=== PATIENT | female | born 1935 | race Caucasian/White ===

== ENCOUNTER → 2017-02-19 | Day surgery (SDC) | payer MEDICARE, BC, OTHER ==
--- NOTE | 2017-02-12 21:37 | CR ---
DATE: 02/12/2017 Preoperative consultation on Eda Rainey for Dr. Nolasco for cataract extraction scheduled 02/19/2017 at [facility]. Dear Dr. Nolasco, thank you for asking me for preoperative consultation on Ms. Eda Rainey. As you know, Ms. Rainey is a 81-year-old female with a past medical history of poorly controlled hypothyroidism, left rotator cuff repair, presenting for preoperative optimization. The patient reports her thyroid has been very difficult to control. She reports taking the levothyroxine 125 mcg two pills a day. She reports compliance. Her reports that she very easily falls asleep any time during the day despite going to bed between 9:00 and 10:00 p.m. and getting up between 6:00 and 7:00 a.m. He reports that she snores heavily at bedtime as well as when she is sitting up dozing on the couch. She is easily arousable. He finds her asleep on the couch 10-12 times a day. He denies any episodes of apnea or her waking up gasping for air. Patient has a history of allergies. She uses Nasacort as needed. The patient has a history of macular degeneration. She follows with a retinal eyeglass lens cutter and has had multiple injections in the right eye. The patient has a remote history of left knee surgery with no recurrent symptoms. The patient had a recent left rotator cuff tear. She completed physical therapy about 6 months ago and has had a good recovery of her left shoulder function. The patient has a history of psoriasis and uses topical creams as needed. The patient is active, walking approximately one block with no chest pain, palpitations, syncope or presyncope. REVIEW OF SYSTEMS: Otherwise negative. PAST MEDICAL HISTORY: 1. Left rotator cuff injury 2016 with full recovery. 2. Chronic renal insufficiency, stage III. 3. Cholelithiasis, asymptomatic. 4. Benign renal cyst. 5. Left knee arthroscopic surgery remotely. 7. Liver hemangioma. 8. Macular degeneration. 9. Poorly controlled hypothyroidism. 10. Seasonal rhinitis. 11. PACs. 12. Psoriasis. MEDICATIONS: - vitamin D3 2000 international units daily. - ICaps daily - Nasacort as needed - levothyroxine 125 mcg twice a day - topical steroids as needed for psoriasis - baby aspirin SOCIAL HISTORY: No smoking. Rare alcohol. FAMILY HISTORY: Father from heart disease at 66. Mother from stroke at 83. Brother had hypertension. DRUG ALLERGIES: FOSAMAX and PENICILLIN cause rashes. PHYSICAL EXAMINATION: Overweight female, no acute distress. Vital Signs: weight 197 with a body mass index (BMI) of 38, blood pressure 154/90 with a recheck of 144/90, heart rate 64, oxygen saturation 98% after exertion. HEENT Exam: Head is normocephalic. The patient has bilateral ceruminosis as well as eczematous changes of the external ear. Neck is supple. Pupils equal, reactive to light. Extraocular movements are intact. No carotid bruits, jugular venous distention (JVD), cervical lymphadenopathy or thyromegaly. Cardiovascular: Regular rate and rhythm. No murmur, rub, gallop. Respiratory: Clear to auscultation, resonant to percussion. Abdomen: Obese, soft, nontender. No hepatosplenomegaly. Extremities: Some osteoarthritis (OA) changes, trace pretibial edema and superficial varicose veins. She has good range of motion of her left shoulder. Dermatologic: She has multiple correa angioma seborrheic keratoses. LABORATORY DATA: EKG: Normal sinus rhythm, rate of 63, axis of 3 degrees, normal OK, QRS, QTC interval, normal R-wave progression, diffuse T-wave flattening, resolution of previous PACs. Laboratory data 02/12/2017: Normal CBC, magnesium. Med profile shows a GFR of 40, a TSH of 248. Chest x-ray 12/04/2016: No acute cardiopulmonary disease. She did have a CT of the abdomen and pelvis 09/01/2014 which showed only cholelithiasis, a renal cyst. IMPRESSION: Ms. Eda Rainey, 81-year-old female with cardiovascular risk factors positive only for age, has no signs or symptoms indicative of cardiovascular ischemia and is felt to be stable for proposed surgical intervention. Risk can be further minimized by the following recommendations: Problems: 1. Hypothyroidism. Longstanding, poorly controlled thyroid function. She reports compliance. Case is discussed with the pharmacist and is unclear on her compliance. I will bump her levothyroxine to 300 mcg. Consider referral to Dr. Melody Deleon. She is being asked to take her thyroid supplement morning of surgery. 2. Chronic renal insufficiency, stage III. Slowly progressive. Continue to monitor. No nonsteroidal anti-inflammatory drugs (NSAIDS). 3. Macular degeneration. Follows with a retinal specialist. 4. Allergic rhinitis. Saline spray and Nasacort discussed. 5. Psoriasis. Continue topical therapies. 6. Renal cyst. No need for further evaluation, treatment. 7. Premature atrial contractions (PACs). Resolved. 8. Cholelithiasis, asymptomatic. Hold off on further evaluation, treatment. 9. Left rotator cuff tendonitis. Good resolution of symptoms status post physical therapy. Thank you very much for this consultation. Please call with questions or concerns.
[~2017-02-19] VITALS: Ht 152.4 cm; Wt 81.6 kg
[~2017-02-19] MED LIST: ACETAMINOPHEN 325 MG TAB PO PRN; ASPI1TAB PO; AcetaZOLAMIDE 500 MG ER CAP PO ONE; BSS with VANC/TOB/EPI for EYE CASES IR ONE; CYCLOPENTOLATE 2% OPHTH SOLN As Ordered ONE; CYCLOPENTOLATE 2% OPHTH SOLN XX ONE; D5W/0.2% SODIUM CHLORIDE 250 ML IV SCH; HEALON DUET (HEALON 10MG/ML 0.55ML & HEALON ENDOCOAT 30MG/ML 0.85ML) As Ordered ONE; KETOROLAC 0.5% OPHTH SOLN OS ONE; LIDOCAINE 1% SDV 5 ML VIAL As Ordered ONE; LIDOCAINE 4% INJ 5 ML AMP OU ONE; MIDAZOLAM INJ 2 MG/2 ML VIAL (J2250) As Ordered ONE; MOXIFLOXACIN IN BSS 0.25MG/0.25ML INTRACAMERAL INJ (OR EYE ONLY)(J2280) As Ordered ONE; OFLOXACIN 0.3 % (OCUFLOX) OPTH SOL 5ML As Ordered ONE; OFLOXACIN 0.3 % (OCUFLOX) OPTH SOL 5ML XX ONE; PHENYLEPHRINE 2.5% OPHTH SOL 2ML As Ordered ONE; PHENYLEPHRINE 2.5% OPHTH SOL 2ML XX ONE; POVIDONE-IODINE 5% OPHTH PREP SOL 30ML As Ordered ONE; PROPARACAINE 0.5% OPHTH SOL 15ML OS PRN; SYNT100T PO; TRIAMCINOLONE PRES FR 40 MG/ML 1ML(TRIESENCE)(OR EYE ONLY)(J3300 PER 1MG) As Ordered ONE; TRIMETHOBENZAMIDE 300 MG CAP PO PRN; TROPICAMIDE 1% OPHTH SOLN 2 ML As Ordered ONE; TROPICAMIDE 1% OPHTH SOLN 2 ML XX ONE; VITA100037 PO; fentaNYL 100 MCG/2 ML INJECTION (J3010) As Ordered ONE
[2017-02-19 12:30] VITALS: BP 130/78
== END | disposition home or self-care (01) ==
LOC: M SDC 08:59
PROVIDERS: ATTEND Ophthalmology
DX: H26.9 Unspecified cataract (principal); E03.9 Hypothyroidism, unspecified; M12.9 Arthropathy, unspecified; L40.9 Psoriasis, unspecified; J30.2 Other seasonal allergic rhinitis; R06.83 Snoring; H35.30 Unspecified macular degeneration; N18.3 Chronic kidney disease, stage 3 (moderate); D18.03 Hemangioma of intra-abdominal structures; N28.1 Cyst of kidney, acquired; K80.20 Calculus of gallbladder without cholecystitis without obstruction; Z88.0 Allergy status to penicillin; Z88.1 Allergy status to other antibiotic agents; Z79.899 Other long term (current) drug therapy; Z79.82 Long term (current) use of aspirin; Z87.81 Personal history of (healed) traumatic fracture; Z78.0 Asymptomatic menopausal state
CPT/HCPCS: 66984; J2250; J2280; J3010; J3300; V2632

== ENCOUNTER → 2017-03-05 | Outpatient (REF) | payer MEDICARE, BC, OTHER ==
[~2017-03-05] MED LIST changes: -ACETAMINOPHEN 325 MG TAB PO PRN; -AcetaZOLAMIDE 500 MG ER CAP PO ONE; -BSS with VANC/TOB/EPI for EYE CASES IR ONE; -CYCLOPENTOLATE 2% OPHTH SOLN As Ordered ONE; -CYCLOPENTOLATE 2% OPHTH SOLN XX ONE; -D5W/0.2% SODIUM CHLORIDE 250 ML IV SCH; -HEALON DUET (HEALON 10MG/ML 0.55ML & HEALON ENDOCOAT 30MG/ML 0.85ML) As Ordered ONE; -KETOROLAC 0.5% OPHTH SOLN OS ONE; -LIDOCAINE 1% SDV 5 ML VIAL As Ordered ONE; -LIDOCAINE 4% INJ 5 ML AMP OU ONE; -MIDAZOLAM INJ 2 MG/2 ML VIAL (J2250) As Ordered ONE; -MOXIFLOXACIN IN BSS 0.25MG/0.25ML INTRACAMERAL INJ (OR EYE ONLY)(J2280) As Ordered ONE; -OFLOXACIN 0.3 % (OCUFLOX) OPTH SOL 5ML As Ordered ONE; -OFLOXACIN 0.3 % (OCUFLOX) OPTH SOL 5ML XX ONE; -PHENYLEPHRINE 2.5% OPHTH SOL 2ML As Ordered ONE; -PHENYLEPHRINE 2.5% OPHTH SOL 2ML XX ONE; -POVIDONE-IODINE 5% OPHTH PREP SOL 30ML As Ordered ONE; -PROPARACAINE 0.5% OPHTH SOL 15ML OS PRN; -TRIAMCINOLONE PRES FR 40 MG/ML 1ML(TRIESENCE)(OR EYE ONLY)(J3300 PER 1MG) As Ordered ONE; -TRIMETHOBENZAMIDE 300 MG CAP PO PRN; -TROPICAMIDE 1% OPHTH SOLN 2 ML As Ordered ONE; -TROPICAMIDE 1% OPHTH SOLN 2 ML XX ONE; -fentaNYL 100 MCG/2 ML INJECTION (J3010) As Ordered ONE
== END ==
LOC: M LAB REF 16:34
PROVIDERS: ATTEND Internal Medicine
DX: E03.9 Hypothyroidism, unspecified (principal); M35.3 Polymyalgia rheumatica

== ENCOUNTER → 2017-03-19 | Outpatient (REF) | payer MEDICARE, OTHER | LOC: M LAB REF 15:12 | PROVIDERS: ATTEND Internal Medicine | DX: E03.9 Hypothyroidism, unspecified (principal) ==

== ENCOUNTER → 2017-04-11 | Outpatient (REF) | payer MEDICARE, OTHER | LOC: M LAB REF 12:37 | PROVIDERS: ATTEND Internal Medicine | DX: R21 Rash and other nonspecific skin eruption (principal) ==

== ENCOUNTER → 2017-05-16 | Outpatient (REF) | payer MEDICARE, OTHER ==
[~2017-05-16] MED LIST changes: -VITA100037 PO; +VITA100067 PO
== END ==
LOC: M LAB REF 13:29
PROVIDERS: ATTEND Internal Medicine
DX: E03.9 Hypothyroidism, unspecified (principal)

== ENCOUNTER → 2018-04-02 | Outpatient (REF) | payer MEDICARE, OTHER ==
[2018-04-02 12:51] LABS: C REACTIVE PROTEIN QUANTITATIV 0.56 MG/DL (0.00-0.30)
== END ==
LOC: M LAB REF 12:20
DX: R21 Rash and other nonspecific skin eruption (principal)
CPT/HCPCS: 86140

== ENCOUNTER → 2018-06-04 | Outpatient (REF) | payer MEDICARE, OTHER | LOC: M LAB REF 16:43 | DX: L02.214 Cutaneous abscess of groin (principal) | CPT/HCPCS: 87186 ==

== ENCOUNTER 2021-05-07 19:46 | Emergency (ER) | payer MEDICARE, OTHER, BC ==
[~2021-05-07] VITALS: Ht 152.4 cm; Wt 61.4 kg
[~2021-05-07 19:46] MED LIST changes: -ASPI1TAB PO; +ASPI81TA26 PO
[2021-05-07] MEDS ORDERED: NS 1,000 ML IV ONE ×2 (20:20→21:00)
[2021-05-07 20:38] LABS: BASO % 0.1 % (0.0-1.0); HEMATOCRIT 43.1 % (36.0-47.0); HEMOGLOBIN 14.6 g/dl (12.0-15.5); LYMPH % 10.1 % (24.0-44.0); MEAN CORPUSCULAR HEMOGLOBIN 31.1 pg (27.0-33.0); MEAN CORPUSCULAR HGB CONC 33.9 g/dl (32.0-36.5); MEAN CORPUSCULAR VOLUME 91.7 fl (80.0-96.0); MONO # 1.1 10^3/uL (0.0-0.8); MONO % 5.6 % (2.0-8.0); NEUTROPHILS # 16.8 10^3/uL (1.5-8.5); NEUTROPHILS % 83.6 % (36.0-66.0); PLATELET COUNT, AUTOMATED 194 10^3/uL (150-450); WHITE BLOOD COUNT 20.1 10^3/uL (4.0-10.0)
[2021-05-07] MEDS ORDERED: AMIODARONE HCL 150 MG in IV 1 EA IV STA ×2 (20:41→22:02)
[2021-05-07 21:11] LABS: ALBUMIN 3.3 GM/DL (3.2-5.2); BILIRUBIN,DIRECT 2.6 MG/DL (0.0-0.2); BILIRUBIN,TOTAL 4.9 MG/DL (0.2-1.0); CALCIUM LEVEL 8.9 MG/DL (8.8-10.2); CREATININE FOR GFR 2.6 MG/DL (0.55-1.30); FREE T4 1.9 NG/DL (0.76-1.46); GLOMERULAR FILTRATION RATE 18.7 (>32); MB/CK RELATIVE INDEX 4.61 (< OR =4); THYROID STIMULATING HORMONE 0.14 uIU/ML (0.358-3.740); TOTAL PROTEIN 6.6 GM/DL (6.4-8.2); TROPONIN I 4.14 NG/ML (< 0.10)
[2021-05-07 21:34] LABS: RSV AMPLIFICATION NEGATIVE (NEGATIVE)
[2021-05-07] MEDS ORDERED: LevoFLOXacin IV 750 MG in IV 1 EA IV ONE (22:00)
[2021-05-07 22:45] VITALS: BP 92/55
== END 2021-05-07 22:59 | disposition short-term general hospital (02) ==
LOC: M ED 19:46
DX: I48.91 Unspecified atrial fibrillation (principal); N18.30 Chronic kidney disease, stage 3 unspecified; Z88.0 Allergy status to penicillin; Z88.1 Allergy status to other antibiotic agents
CPT/HCPCS: 70450; 71045; 80048; 80076; 82550; 82553; 83605; 83880; 84439; 84443; 84484; 85025; 87040; 87631; 93005; 93041; 94760; 96365; 96366; 99285; J0282; J1956

== ENCOUNTER → 2022-07-04 | Outpatient (CLI) | payer MEDICARE, OTHER, BC | LOC: M RAD 12:41 | PROVIDERS: ATTEND Internal Medicine Interventional Cardiology | DX: R55 Syncope and collapse (principal) ==

== ENCOUNTER → 2023-10-17 | Outpatient (REF) | payer MEDICARE, OTHER | LOC: M LAB REF 16:29 | PROVIDERS: ATTEND Internal Medicine | DX: R31.9 Hematuria, unspecified (principal) ==

== ENCOUNTER → 2023-11-28 | Outpatient (REF) | payer MEDICARE, OTHER | LOC: M LAB REF 16:39 | PROVIDERS: ATTEND Internal Medicine | DX: I48.0 Paroxysmal atrial fibrillation (principal) ==

== ENCOUNTER → 2023-12-13 | Outpatient (REF) | payer MEDICARE, OTHER | LOC: M LAB REF 18:36 | PROVIDERS: ATTEND Internal Medicine | DX: I48.0 Paroxysmal atrial fibrillation (principal) ==

== ENCOUNTER → 2024-01-12 | Outpatient (CLI) | payer MEDICARE, BC, OTHER | LOC: M EKG 09:07 | PROVIDERS: ATTEND Internal Medicine | DX: I48.0 Paroxysmal atrial fibrillation (principal) ==

== ENCOUNTER → 2024-02-13 | Outpatient (REF) | payer MEDICARE, BC, OTHER | LOC: M LAB REF 16:43 | PROVIDERS: ATTEND Internal Medicine | DX: I48.0 Paroxysmal atrial fibrillation (principal) ==

== ENCOUNTER → 2024-03-04 | Outpatient (REF) | payer MEDICARE, OTHER | LOC: M LAB REF 16:34 | PROVIDERS: ATTEND Internal Medicine | DX: I48.0 Paroxysmal atrial fibrillation (principal) ==

== ENCOUNTER 2024-07-08 13:59 | Inpatient (IN) | payer MEDICARE, OTHER ==
[~2024-07-08] VITALS: Ht 157.5 cm; Wt 69.5 kg
[2024-07-08] MEDS ORDERED: PRES10CA2 PO (14:38)
[2024-07-08] MEDS ORDERED: LEVO75TA4 PO (14:38)
[2024-07-08] MEDS ORDERED: ELIQ5TAB PO (14:38)
[2024-07-08] MEDS ORDERED: MIDO2.5T PO (14:38)
[2024-07-08] MEDS ORDERED: MULT-90 PO (14:38)
[2024-07-08] MEDS ORDERED: DIGO0.123 PO (14:38)
[2024-07-08 15:27] LABS: BASO # 0.1 10^3/uL (0.0-0.2); BASO % 1.1 % (0.0-1.0); EOS # 0.2 10^3/uL (0.0-0.5); EOS % 2.5 % (0.0-3.0); HEMATOCRIT 42.8 % (36.0-47.0); HEMOGLOBIN 14.3 g/dl (12.0-15.5); LYMPH # 1.7 10^3/uL (1.5-5.0); LYMPH % 27.4 % (24.0-44.0); MEAN CORPUSCULAR HEMOGLOBIN 33.1 pg (27.0-33.0); MEAN CORPUSCULAR HGB CONC 33.4 g/dl (32.0-36.5); MEAN CORPUSCULAR VOLUME 99.1 fl (80.0-96.0); MONO # 0.5 10^3/uL (0.0-0.8); MONO % 8.2 % (2.0-8.0); NEUTROPHILS # 3.9 10^3/uL (1.5-8.5); NEUTROPHILS % 60.6 % (36.0-66.0); PLATELET COUNT, AUTOMATED 155 10^3/uL (150-450); RED BLOOD COUNT 4.32 10^6/uL (4.00-5.40); WHITE BLOOD COUNT 6.4 10^3/uL (4.0-10.0)
[2024-07-08 15:34] LABS: CALCIUM LEVEL 9.4 MG/DL (8.3-10.6); CREATININE FOR GFR 1.37 MG/DL (0.55-1.30); GLOMERULAR FILTRATION RATE 38.9 (>32); POTASSIUM SERUM 4.5 MMOL/L (3.5-5.1)
[2024-07-08] MEDS ORDERED: ISOVUE-370 76% 100ML VIAL As Ordered ONE (19:42)
[2024-07-08] MEDS ORDERED: THERTAB52 PO (23:10)
[2024-07-08] MEDS ORDERED: VITA200032 PO (23:10)
[2024-07-08] MEDS ORDERED: HOME MED LIST COMPLETE! XX SCH (23:10)
[2024-07-08] MEDS ORDERED: HEPARIN SOD (PORCINE) 5000UNITS/ML 1ML VIAL/SYRINGE SC SCH (23:20)
[2024-07-09] VITALS (7 sets, daily range): BP systolic 101–206; BP diastolic 51–94; TEMP 97.2–98.4; O2SAT 94–97
[2024-07-09] MEDS: ASPIRIN 81MG CHEW TABLET PO ONE (00:58)
[2024-07-09 01:36] LABS: DIGOXIN LEVEL 0.6 NG/ML (0.8-2.0)
[2024-07-09 04:24] LABS: CREATININE,RANDOM URINE 62.6 MG/DL
[2024-07-09] MEDS: LEVOTHYROXINE 75MCG TABLET (0.075MG) PO SCH (06:32)
[2024-07-09] MEDS ORDERED: MIDODRINE 2.5 MG TAB PO SCH (09:00)
[2024-07-09] MEDS: DIGOXIN 0.125 MG TAB PO SCH (09:00)
[2024-07-09] MEDS: ATORVASTATIN 20 MG TAB PO SCH (09:29)
[2024-07-09] MEDS: ASPIRIN 81MG CHEW TABLET PO SCH (09:29)
[2024-07-09] MEDS: APIXABAN 5 MG TAB (ELIQUIS) PO SCH (09:30)
[2024-07-09 22:10] LABS: BASO # 0.1 10^3/uL (0.0-0.2); BASO % 0.7 % (0.0-1.0); EOS # 0.1 10^3/uL (0.0-0.5); HEMATOCRIT 43.8 % (36.0-47.0); HEMOGLOBIN 14.7 g/dl (12.0-15.5); LYMPH # 1.4 10^3/uL (1.5-5.0); LYMPH % 17.5 % (24.0-44.0); MEAN CORPUSCULAR HEMOGLOBIN 32.6 pg (27.0-33.0); MEAN CORPUSCULAR HGB CONC 33.6 g/dl (32.0-36.5); MEAN CORPUSCULAR VOLUME 97.1 fl (80.0-96.0); MONO # 0.5 10^3/uL (0.0-0.8); MONO % 6.2 % (2.0-8.0); NEUTROPHILS # 6.1 10^3/uL (1.5-8.5); NEUTROPHILS % 74.5 % (36.0-66.0); PLATELET COUNT, AUTOMATED 148 10^3/uL (150-450); RED BLOOD COUNT 4.51 10^6/uL (4.00-5.40); WHITE BLOOD COUNT 8.2 10^3/uL (4.0-10.0)
[2024-07-09 22:11] LABS: ABG BASE EXCESS 2.1 (-2.0-2.0); ABG HCO3 26.1 MMOL/L (22.0-26.0); ABG O2 SATURATION 97.7 % (95.0-99.0); ABG PARTIAL PRESSURE CO2 38.6 mmHg (35.0-45.0); ABG STANDARD HCO3 26.4 MMOL/L. (22.0-26.0); ABG TOTAL CO2 27.3 MMOL/L (23.0-31.0); ABG pH (ARTERIAL) 7.448 UNITS (7.350-7.450)
[2024-07-09 22:48] LABS: CALCIUM LEVEL 9.1 MG/DL (8.3-10.6); CREATININE FOR GFR 1.13 MG/DL (0.55-1.30); GLOMERULAR FILTRATION RATE 48.6 (>32); POTASSIUM SERUM 4.3 MMOL/L (3.5-5.1)
[2024-07-09] MEDS: RAMELTEON 8 MG TAB (ROZEREM) PO ONE (23:23)
[2024-07-09 23:24] LABS: PROCALCITONIN 0.06 ng/ml
[2024-07-10 03:50] VITALS: BP 180/80; TEMP 97.5; O2SAT 94
[2024-07-10 10:00] VITALS: BP 186/84; TEMP 96.9; O2SAT 96
[2024-07-10 12:00] VITALS: BP 169/73; TEMP 97.5; O2SAT 95
[2024-07-10 16:05] VITALS: BP 112/56; TEMP 97.5; O2SAT 98
[2024-07-10 20:50] VITALS: BP 130/62; TEMP 97.3; O2SAT 97
[2024-07-11] VITALS (7 sets, daily range): BP systolic 116–193; BP diastolic 57–86; TEMP 97–98.8; O2SAT 95–98
[2024-07-11] MEDS: amLODIPine 5 MG TAB PO ONE ×2 (01:12→22:44)
[2024-07-11] MEDS: **hydrALAZINE** 10 MG TAB PO ONE (05:57)
[2024-07-11] MEDS: MECLIZINE 12.5 MG TAB PO SCH (21:00)
[2024-07-12] VITALS (7 sets, daily range): BP systolic 154–176; BP diastolic 67–89; TEMP 97.3–98; O2SAT 95–97
[2024-07-12 06:49] LABS: HEMATOCRIT 42.1 % (36.0-47.0); HEMOGLOBIN 14.3 g/dl (12.0-15.5); MEAN CORPUSCULAR HEMOGLOBIN 32.6 pg (27.0-33.0); MEAN CORPUSCULAR VOLUME 96.1 fl (80.0-96.0); PLATELET COUNT, AUTOMATED 170 10^3/uL (150-450); RED BLOOD COUNT 4.38 10^6/uL (4.00-5.40); WHITE BLOOD COUNT 9.2 10^3/uL (4.0-10.0)
[2024-07-12 07:09] LABS: ALBUMIN 3.5 G/DL (3.2-5.2); BILIRUBIN,TOTAL 1.3 MG/DL (0.3-1.2); CALCIUM LEVEL 9.2 MG/DL (8.3-10.6); CREATININE FOR GFR 1.12 MG/DL (0.55-1.30); GLOMERULAR FILTRATION RATE 49.1 (>32); POTASSIUM SERUM 3.8 MMOL/L (3.5-5.1); TOTAL PROTEIN 6.4 G/DL (5.7-8.2)
[2024-07-12] MEDS: LEVOTHYROXINE 50MCG TABLET (0.05MG) PO ONE (12:37)
[2024-07-13 00:51] VITALS: BP 167/73; TEMP 97.7; O2SAT 97
[2024-07-13 05:16] VITALS: BP 155/91; TEMP 97.7; O2SAT 97
[2024-07-13] MEDS: LEVOTHYROXINE 125MCG TABLET (0.125MG) PO SCH (05:22)
[2024-07-13 07:40] VITALS: BP 152/67; TEMP 97.6; O2SAT 97
[2024-07-13 08:20] LABS: ALBUMIN 3.5 G/DL (3.2-5.2); BILIRUBIN,TOTAL 1.3 MG/DL (0.3-1.2); CALCIUM LEVEL 9.2 MG/DL (8.3-10.6); CREATININE FOR GFR 1.17 MG/DL (0.55-1.30); GLOMERULAR FILTRATION RATE 46.7 (>32); POTASSIUM SERUM 4.1 MMOL/L (3.5-5.1); TOTAL PROTEIN 6.4 G/DL (5.7-8.2)
[2024-07-13 12:00] VITALS: BP 161/70; TEMP 97; O2SAT 96
[2024-07-13 16:00] VITALS: BP 137/90; TEMP 96.9; O2SAT 94
[2024-07-13 20:43] VITALS: BP 150/80; TEMP 97.3; O2SAT 96
[2024-07-14 00:11] VITALS: BP 144/82; TEMP 97.4; O2SAT 94
[2024-07-14 07:20] VITALS: BP 138/63; TEMP 97.1; O2SAT 96
[2024-07-14 08:05] LABS: HEMATOCRIT 42.4 % (36.0-47.0); HEMOGLOBIN 14.2 g/dl (12.0-15.5); MEAN CORPUSCULAR HEMOGLOBIN 32.5 pg (27.0-33.0); MEAN CORPUSCULAR HGB CONC 33.5 g/dl (32.0-36.5); PLATELET COUNT, AUTOMATED 191 10^3/uL (150-450); RED BLOOD COUNT 4.37 10^6/uL (4.00-5.40); WHITE BLOOD COUNT 9.7 10^3/uL (4.0-10.0)
[2024-07-14 08:36] LABS: CALCIUM LEVEL 9.1 MG/DL (8.3-10.6); CREATININE FOR GFR 1.14 MG/DL (0.55-1.30); GLOMERULAR FILTRATION RATE 48.1 (>32)
[2024-07-14] MEDS: MULTIVITAMINS/MINERALS THERAP 1 TAB PO SCH (08:47)
[2024-07-14 16:36] VITALS: BP 160/77; TEMP 97.9; O2SAT 95
[2024-07-14 18:40] VITALS: BP 104/55; TEMP 97; O2SAT 96
[2024-07-14 20:00] VITALS: BP 109/55; TEMP 97.3; O2SAT 94
[2024-07-15 12:00] VITALS: BP 117/78; TEMP 97.5; O2SAT 97
[2024-07-15 21:00] VITALS: BP 133/72; TEMP 98; O2SAT 97
[2024-07-16 04:00] VITALS: BP 104/68; TEMP 97; O2SAT 94
[2024-07-16 05:55] LABS: HEMATOCRIT 36.6 % (36.0-47.0); MEAN CORPUSCULAR HGB CONC 32.8 g/dl (32.0-36.5); MEAN CORPUSCULAR VOLUME 97.6 fl (80.0-96.0); PLATELET COUNT, AUTOMATED 177 10^3/uL (150-450); RED BLOOD COUNT 3.75 10^6/uL (4.00-5.40); WHITE BLOOD COUNT 10.1 10^3/uL (4.0-10.0)
[2024-07-16 06:19] LABS: ALBUMIN 3.2 G/DL (3.2-5.2); BILIRUBIN,TOTAL 1.5 MG/DL (0.3-1.2); CALCIUM LEVEL 8.4 MG/DL (8.3-10.6); CREATININE FOR GFR 1.25 MG/DL (0.55-1.30); GLOMERULAR FILTRATION RATE 43.3 (>32); POTASSIUM SERUM 3.8 MMOL/L (3.5-5.1); TOTAL PROTEIN 5.9 G/DL (5.7-8.2)
[2024-07-16] MEDS ORDERED: DOCUSATE SODIUM 100MG CAPSULE PO SCH (09:00)
[2024-07-16] MEDS ORDERED: MOM 30ML SUSPENSION UDC PO PRN (09:35)
[2024-07-16] MEDS: SENOKOT S TAB PO SCH (10:16)
[2024-07-16 12:00] VITALS: BP 117/67; TEMP 96.8; O2SAT 97
[2024-07-16] MEDS: ACETAMINOPHEN TAB 650MG DOSE (2X325MG) PO PRN (16:10)
[2024-07-16] MEDS: SENNA 8.6 MG TAB (SENOKOT) PO SCH (21:09)
[2024-07-17 04:00] VITALS: BP 135/59; TEMP 97.2; O2SAT 98
[2024-07-17 05:22] LABS: HEMATOCRIT 36.3 % (36.0-47.0); HEMOGLOBIN 11.8 g/dl (12.0-15.5); MEAN CORPUSCULAR HEMOGLOBIN 31.8 pg (27.0-33.0); MEAN CORPUSCULAR HGB CONC 32.5 g/dl (32.0-36.5); MEAN CORPUSCULAR VOLUME 97.8 fl (80.0-96.0); PLATELET COUNT, AUTOMATED 169 10^3/uL (150-450); RED BLOOD COUNT 3.71 10^6/uL (4.00-5.40)
[2024-07-17 05:46] LABS: ALBUMIN 2.9 G/DL (3.2-5.2); BILIRUBIN,TOTAL 1.4 MG/DL (0.3-1.2); CALCIUM LEVEL 8.4 MG/DL (8.3-10.6); CREATININE FOR GFR 1.13 MG/DL (0.55-1.30); GLOMERULAR FILTRATION RATE 48.6 (>32); POTASSIUM SERUM 3.9 MMOL/L (3.5-5.1); TOTAL PROTEIN 5.6 G/DL (5.7-8.2)
[2024-07-18 03:17] VITALS: BP 120/64; TEMP 97.9; O2SAT 96
[2024-07-18 06:34] LABS: HEMATOCRIT 38.3 % (36.0-47.0); HEMOGLOBIN 12.8 g/dl (12.0-15.5); MEAN CORPUSCULAR HEMOGLOBIN 32.5 pg (27.0-33.0); MEAN CORPUSCULAR HGB CONC 33.4 g/dl (32.0-36.5); MEAN CORPUSCULAR VOLUME 97.2 fl (80.0-96.0); PLATELET COUNT, AUTOMATED 218 10^3/uL (150-450); RED BLOOD COUNT 3.94 10^6/uL (4.00-5.40); WHITE BLOOD COUNT 18.2 10^3/uL (4.0-10.0)
[2024-07-18 07:02] LABS: ALBUMIN 2.8 G/DL (3.2-5.2); BILIRUBIN,TOTAL 1.6 MG/DL (0.3-1.2); CALCIUM LEVEL 9.1 MG/DL (8.3-10.6); CREATININE FOR GFR 1.28 MG/DL (0.55-1.30); GLOMERULAR FILTRATION RATE 42.1 (>32); POTASSIUM SERUM 3.9 MMOL/L (3.5-5.1); TOTAL PROTEIN 5.9 G/DL (5.7-8.2)
[2024-07-18] MEDS: CEFDINIR 300 MG CAP (OMNICEF) PO SCH (21:11)
[2024-07-19 04:00] VITALS: BP 134/61; TEMP 97.2; O2SAT 96
[2024-07-19 05:54] LABS: HEMATOCRIT 33.5 % (36.0-47.0); HEMOGLOBIN 11.1 g/dl (12.0-15.5); MEAN CORPUSCULAR HEMOGLOBIN 32.3 pg (27.0-33.0); MEAN CORPUSCULAR HGB CONC 33.1 g/dl (32.0-36.5); MEAN CORPUSCULAR VOLUME 97.4 fl (80.0-96.0); PLATELET COUNT, AUTOMATED 204 10^3/uL (150-450); RED BLOOD COUNT 3.44 10^6/uL (4.00-5.40); WHITE BLOOD COUNT 16.1 10^3/uL (4.0-10.0)
[2024-07-19 06:26] LABS: ALBUMIN 2.6 G/DL (3.2-5.2); BILIRUBIN,TOTAL 1.6 MG/DL (0.3-1.2); CALCIUM LEVEL 8.6 MG/DL (8.3-10.6); CREATININE FOR GFR 1.28 MG/DL (0.55-1.30); GLOMERULAR FILTRATION RATE 42.1 (>32); TOTAL PROTEIN 5.5 G/DL (5.7-8.2)
[2024-07-20 04:00] VITALS: BP 119/55; TEMP 97.2; O2SAT 98
[2024-07-20 06:18] LABS: HEMATOCRIT 33.5 % (36.0-47.0); HEMOGLOBIN 10.9 g/dl (12.0-15.5); MEAN CORPUSCULAR HGB CONC 32.5 g/dl (32.0-36.5); MEAN CORPUSCULAR VOLUME 98.2 fl (80.0-96.0); PLATELET COUNT, AUTOMATED 205 10^3/uL (150-450); RED BLOOD COUNT 3.41 10^6/uL (4.00-5.40); WHITE BLOOD COUNT 9.7 10^3/uL (4.0-10.0)
[2024-07-20 06:42] LABS: ALBUMIN 2.3 G/DL (3.2-5.2); BILIRUBIN,TOTAL 1.3 MG/DL (0.3-1.2); CALCIUM LEVEL 8.9 MG/DL (8.3-10.6); CREATININE FOR GFR 1.23 MG/DL (0.55-1.30); GLOMERULAR FILTRATION RATE 44.1 (>32); POTASSIUM SERUM 4.4 MMOL/L (3.5-5.1); TOTAL PROTEIN 5.2 G/DL (5.7-8.2)
[2024-07-21 04:38] VITALS: BP 103/61; TEMP 97; O2SAT 96
[2024-07-21 05:18] LABS: HEMATOCRIT 34.9 % (36.0-47.0); HEMOGLOBIN 11.7 g/dl (12.0-15.5); MEAN CORPUSCULAR HEMOGLOBIN 32.4 pg (27.0-33.0); MEAN CORPUSCULAR HGB CONC 33.5 g/dl (32.0-36.5); MEAN CORPUSCULAR VOLUME 96.7 fl (80.0-96.0); PLATELET COUNT, AUTOMATED 239 10^3/uL (150-450); RED BLOOD COUNT 3.61 10^6/uL (4.00-5.40); WHITE BLOOD COUNT 8.7 10^3/uL (4.0-10.0)
[2024-07-21 05:47] LABS: ALBUMIN 2.5 G/DL (3.2-5.2); BILIRUBIN,TOTAL 1.4 MG/DL (0.3-1.2); CALCIUM LEVEL 8.6 MG/DL (8.3-10.6); CREATININE FOR GFR 1.18 MG/DL (0.55-1.30); GLOMERULAR FILTRATION RATE 46.2 (>32); POTASSIUM SERUM 3.9 MMOL/L (3.5-5.1); TOTAL PROTEIN 5.6 G/DL (5.7-8.2)
[2024-07-22 04:06] VITALS: BP 100/54; TEMP 96.8; O2SAT 95
[2024-07-22 06:24] LABS: HEMOGLOBIN 11.2 g/dl (12.0-15.5); MEAN CORPUSCULAR HEMOGLOBIN 31.9 pg (27.0-33.0); MEAN CORPUSCULAR HGB CONC 32.9 g/dl (32.0-36.5); MEAN CORPUSCULAR VOLUME 96.9 fl (80.0-96.0); PLATELET COUNT, AUTOMATED 246 10^3/uL (150-450); RED BLOOD COUNT 3.51 10^6/uL (4.00-5.40); WHITE BLOOD COUNT 7.3 10^3/uL (4.0-10.0)
[2024-07-22 06:45] LABS: ALBUMIN 2.5 G/DL (3.2-5.2); CALCIUM LEVEL 8.6 MG/DL (8.3-10.6); CREATININE FOR GFR 1.12 MG/DL (0.55-1.30); GLOMERULAR FILTRATION RATE 49.1 (>32); POTASSIUM SERUM 3.8 MMOL/L (3.5-5.1); TOTAL PROTEIN 5.4 G/DL (5.7-8.2)
[2024-07-22] MEDS ORDERED: SENN-52 PO (08:33)
[2024-07-22] MEDS ORDERED: ASPI81CH8 PO (08:33)
[2024-07-22] MEDS ORDERED: LEVO125T4 PO (08:33)
[2024-07-22] MEDS ORDERED: MECL-136 PO (08:33)
[2024-07-22] MEDS ORDERED: ATOR1TAB21 PO (08:33)
[2024-07-22] MEDS ORDERED: ACET1TAB55 PO (08:33)
[2024-07-22] MEDS ORDERED: SYNT100T PO (08:34)
== END 2024-07-22 11:45 | DRG 948 ==
LOC: EDBD 13:59 → M ED 13:59 → M ED INP 23:21 → M PCU 07-09 06:42 → M MSPAV 07-14 18:39
PROVIDERS: ADMIT Family Medicine; ATTEND Internal Medicine Nephrology
PROC: B246ZZZ Ultrasonography of Right and Left Heart (ICD-10-PCS; principal; 2024-07-09)
DX: R53.1 Weakness (principal); R29.5 Transient paralysis; N39.0 Urinary tract infection, site not specified; I48.91 Unspecified atrial fibrillation; E03.9 Hypothyroidism, unspecified; I95.9 Hypotension, unspecified; H35.30 Unspecified macular degeneration; M17.12 Unilateral primary osteoarthritis, left knee; M47.812 Spondylosis without myelopathy or radiculopathy, cervical region; M85.88 Other specified disorders of bone density and structure, other site; I10 Essential (primary) hypertension; R29.6 Repeated falls; R41.0 Disorientation, unspecified; R42 Dizziness and giddiness; R33.9 Retention of urine, unspecified; Z66 Do not resuscitate; Z91.148 Patient's other noncompliance with medication regimen for other reason; Z20.822 Contact with and (suspected) exposure to COVID-19; Z79.890 Hormone replacement therapy; Z79.01 Long term (current) use of anticoagulants; Z79.899 Other long term (current) drug therapy; Z88.0 Allergy status to penicillin; Z88.1 Allergy status to other antibiotic agents

== ENCOUNTER 2024-09-17 21:31 | Emergency (ER) | payer MEDICARE, OTHER ==
[~2024-09-17] VITALS: Ht 157.5 cm; Wt 76.2 kg
[2024-09-17 21:38] VITALS: BP 170/70; TEMP 97.9; O2SAT 98
== END 2024-09-18 00:21 | disposition home or self-care (01) ==
LOC: M ED 21:31
DX: S00.93XA Contusion of unspecified part of head, initial encounter (principal); W19.XXXA Unspecified fall, initial encounter; Y92.009 Unspecified place in unspecified non-institutional (private) residence as the place of occurrence of the external cause; Y93.9 Activity, unspecified; Y99.9 Unspecified external cause status; M47.812 Spondylosis without myelopathy or radiculopathy, cervical region; I48.91 Unspecified atrial fibrillation; E03.9 Hypothyroidism, unspecified; Z79.01 Long term (current) use of anticoagulants; Z79.899 Other long term (current) drug therapy; Z88.0 Allergy status to penicillin; Z88.1 Allergy status to other antibiotic agents

== ENCOUNTER → 2024-09-17 | Outpatient (REF) ==
[~2024-09-17] MED LIST changes: +ACET1TAB55 PO; +ASPI81CH8 PO; +ATOR1TAB21 PO; +DIGO0.123 PO; +ELIQ5TAB PO; +LEVO125T4 PO; +LEVO75TA4 PO; +MECL-136 PO; +MIDO2.5T3 PO; +MULT-90 PO; +PRES10CA2 PO; +SENN-52 PO; +THERTAB52 PO; +VITA200032 PO
[2024-09-17 13:18] LABS: BASO # 0.1 10^3/uL (0.0-0.2); BASO % 0.9 % (0.0-1.0); EOS # 0.2 10^3/uL (0.0-0.5); EOS % 2.5 % (0.0-3.0); HEMATOCRIT 36.1 % (36.0-47.0); HEMOGLOBIN 11.7 g/dl (12.0-15.5); LYMPH # 1.6 10^3/uL (1.5-5.0); LYMPH % 20.9 % (24.0-44.0); MEAN CORPUSCULAR HEMOGLOBIN 33.5 pg (27.0-33.0); MEAN CORPUSCULAR HGB CONC 32.4 g/dl (32.0-36.5); MEAN CORPUSCULAR VOLUME 103.4 fl (80.0-96.0); MONO # 0.6 10^3/uL (0.0-0.8); MONO % 7.8 % (2.0-8.0); NEUTROPHILS # 5.1 10^3/uL (1.5-8.5); NEUTROPHILS % 67.6 % (36.0-66.0); PLATELET COUNT, AUTOMATED 180 10^3/uL (150-450); RED BLOOD COUNT 3.49 10^6/uL (4.00-5.40); WHITE BLOOD COUNT 7.5 10^3/uL (4.0-10.0)
[2024-09-17 13:43] LABS: DIGOXIN LEVEL 1.8 NG/ML (0.8-2.0)
[2024-09-17 13:44] LABS: ALBUMIN 3.2 G/DL (3.2-5.2); BILIRUBIN,TOTAL 0.5 MG/DL (0.3-1.2); CALCIUM LEVEL 9.3 MG/DL (8.3-10.6); CREATININE FOR GFR 1.21 MG/DL (0.55-1.30); GLOMERULAR FILTRATION RATE 44.8 (>32); POTASSIUM SERUM 4.6 MMOL/L (3.5-5.1); TOTAL PROTEIN 6.5 G/DL (5.7-8.2)
[2024-09-17 13:48] LABS: THYROID STIMULATING HORMONE 71.848 uIU/ML (0.55-4.78)
== END ==
LOC: SKLAB6 09:10
PROVIDERS: ATTEND Internal Medicine
DX: I48.91 Unspecified atrial fibrillation (principal); F03.90 Unspecified dementia, unspecified severity, without behavioral disturbance, psychotic disturbance, mood disturbance, and anxiety

== ENCOUNTER → 2024-09-19 | Outpatient (REF) | LOC: SKLAB6 08:28 | PROVIDERS: ATTEND Internal Medicine | DX: Z79.899 Other long term (current) drug therapy (principal); R94.31 Abnormal electrocardiogram [ECG] [EKG] ==

== ENCOUNTER → 2024-10-08 | Outpatient (REF) | payer MEDICARE, OTHER ==
[2024-10-08 11:58] LABS: CALCIUM LEVEL 9.6 MG/DL (8.3-10.6); CREATININE FOR GFR 1.35 MG/DL (0.55-1.30); GLOMERULAR FILTRATION RATE 39.5 (>32); POTASSIUM SERUM 4.8 MMOL/L (3.5-5.1)
== END ==
LOC: SKLAB6 10:08
PROVIDERS: ATTEND Internal Medicine
DX: I50.9 Heart failure, unspecified (principal)

== ENCOUNTER 2025-01-13 05:59 | Emergency (ER) | payer MEDICARE, OTHER ==
[~2025-01-13] VITALS: Ht 152.4 cm; Wt 79.4 kg
[2025-01-13 06:49] LABS: BASO # 0.1 10^3/uL (0.0-0.2); BASO % 0.7 % (0.0-1.0); EOS # 0.3 10^3/uL (0.0-0.5); EOS % 3.4 % (0.0-3.0); HEMATOCRIT 44.1 % (36.0-47.0); HEMOGLOBIN 14.6 g/dl (12.0-15.5); LYMPH # 1.9 10^3/uL (1.5-5.0); LYMPH % 24.8 % (24.0-44.0); MEAN CORPUSCULAR HEMOGLOBIN 31.8 pg (27.0-33.0); MEAN CORPUSCULAR HGB CONC 33.1 g/dl (32.0-36.5); MEAN CORPUSCULAR VOLUME 96.1 fl (80.0-96.0); MONO # 0.6 10^3/uL (0.0-0.8); MONO % 8.4 % (2.0-8.0); NEUTROPHILS # 4.8 10^3/uL (1.5-8.5); NEUTROPHILS % 62.4 % (36.0-66.0); PLATELET COUNT, AUTOMATED 172 10^3/uL (150-450); RED BLOOD COUNT 4.59 10^6/uL (4.00-5.40); WHITE BLOOD COUNT 7.6 10^3/uL (4.0-10.0)
[2025-01-13 07:01] LABS: INR 1.06; PARTIAL THROMBOPLASTIN TIME 25.3 SECONDS (24.8-34.2); PROTHROMBIN TIME 14.1 SECONDS (12.5-14.5)
[2025-01-13 07:20] LABS: BLOOD UREA NITROGEN 33 MG/DL (9-23); CALCIUM LEVEL 9.1 MG/DL (8.3-10.6); CARBON DIOXIDE LEVEL 27 MMOL/L (20-31); CHLORIDE LEVEL 108 MMOL/L (98-107); CREATININE FOR GFR 1.25 MG/DL (0.55-1.30); DIGOXIN LEVEL < 0.1 NG/ML (0.8-2.0); GLOMERULAR FILTRATION RATE 43.2 (>32); GLUCOSE, FASTING 93 MG/DL (74-106); MAGNESIUM LEVEL 2.2 MG/DL (1.8-2.4); SODIUM LEVEL 143 MMOL/L (136-145)
[2025-01-13 07:22] LABS: THYROID STIMULATING HORMONE 2.803 uIU/ML (0.55-4.78)
[2025-01-13 07:23] LABS: FREE T4 1.42 NG/DL (0.89-1.76)
[2025-01-13 08:52] VITALS: BP 141/104
[2025-01-13] MEDS: METOPROLOL TART 25 MG TABLET PO ONE (08:52)
[2025-01-13] MEDS: BOOSTRIX VACCINE (TETANUS/DIPHTH/ACEL. PERTUSSIS) 0.5ML SYR IM.IMMUN ONE (08:52)
[2025-01-13] MEDS: ACETAMINOPHEN 325 MG TAB PO ONE (08:53)
[2025-01-13] MEDS ORDERED: PILL CUTTER 1 EACH XX ONE (08:55)
[2025-01-13] MEDS ORDERED: QUET1TAB17 PO (09:46)
[2025-01-13] MEDS ORDERED: MIDO10TA3 PO (09:46)
[2025-01-13] MEDS ORDERED: ACET-683 PO (09:46)
[2025-01-13] MEDS ORDERED: SENN-186 PO (09:46)
[2025-01-13] MEDS ORDERED: MILKSUS3 PO (09:46)
[2025-01-13] MEDS ORDERED: FURO20TA2 PO (09:46)
[2025-01-13] MEDS ORDERED: HOME MED LIST COMPLETE! XX SCH (09:50)
[2025-01-13 10:45] VITALS: BP 138/94; TEMP 96.5; O2SAT 97
== END 2025-01-13 11:11 | disposition home or self-care (01) ==
LOC: M ED 09:18
DX: S01.01XA Laceration without foreign body of scalp, initial encounter (principal); W19.XXXA Unspecified fall, initial encounter; Y92.002 Bathroom of unspecified non-institutional (private) residence as the place of occurrence of the external cause; M47.812 Spondylosis without myelopathy or radiculopathy, cervical region; Y93.89 Activity, other specified; Y99.9 Unspecified external cause status; I48.91 Unspecified atrial fibrillation; E03.9 Hypothyroidism, unspecified; I11.0 Hypertensive heart disease with heart failure; N18.30 Chronic kidney disease, stage 3 unspecified; F41.9 Anxiety disorder, unspecified; M62.81 Muscle weakness (generalized); Z88.0 Allergy status to penicillin; Z88.1 Allergy status to other antibiotic agents

== ENCOUNTER → 2025-01-21 | Outpatient (REF) | payer MEDICARE, OTHER ==
[~2025-01-21] MED LIST changes: +ACET-683 PO; +FURO20TA2 PO; +MIDO10TA3 PO; +MILKSUS3 PO; +QUET1TAB17 PO; +SENN-186 PO
[2025-01-21 10:03] LABS: HEMATOCRIT 40.9 % (36.0-47.0); HEMOGLOBIN 13.4 g/dl (12.0-15.5); MEAN CORPUSCULAR HEMOGLOBIN 31.8 pg (27.0-33.0); MEAN CORPUSCULAR HGB CONC 32.8 g/dl (32.0-36.5); MEAN CORPUSCULAR VOLUME 97.1 fl (80.0-96.0); PLATELET COUNT, AUTOMATED 167 10^3/uL (150-450); RED BLOOD COUNT 4.21 10^6/uL (4.00-5.40)
[2025-01-21 10:33] LABS: CREATININE FOR GFR 1.55 MG/DL (0.55-1.30); GLOMERULAR FILTRATION RATE 33.7 (>32); POTASSIUM SERUM 4.1 MMOL/L (3.5-5.1)
== END ==
LOC: SKLAB6 09:09
PROVIDERS: ATTEND Internal Medicine
DX: R19.7 Diarrhea, unspecified (principal); R11.2 Nausea with vomiting, unspecified

== ENCOUNTER → 2025-01-22 | Outpatient (REF) | payer MEDICARE, OTHER ==
[2025-01-22 08:01] LABS: BASO % 0.5 % (0.0-1.0); EOS # 0.1 10^3/uL (0.0-0.5); EOS % 1.8 % (0.0-3.0); HEMATOCRIT 42.3 % (36.0-47.0); HEMOGLOBIN 13.6 g/dl (12.0-15.5); LYMPH # 1.6 10^3/uL (1.5-5.0); LYMPH % 27.7 % (24.0-44.0); MEAN CORPUSCULAR HEMOGLOBIN 31.5 pg (27.0-33.0); MEAN CORPUSCULAR HGB CONC 32.2 g/dl (32.0-36.5); MEAN CORPUSCULAR VOLUME 97.9 fl (80.0-96.0); MONO # 0.7 10^3/uL (0.0-0.8); MONO % 11.5 % (2.0-8.0); NEUTROPHILS # 3.3 10^3/uL (1.5-8.5); NEUTROPHILS % 58.3 % (36.0-66.0); PLATELET COUNT, AUTOMATED 159 10^3/uL (150-450); RED BLOOD COUNT 4.32 10^6/uL (4.00-5.40); WHITE BLOOD COUNT 5.6 10^3/uL (4.0-10.0)
[2025-01-22 08:31] LABS: CALCIUM LEVEL 8.1 MG/DL (8.3-10.6); CREATININE FOR GFR 1.4 MG/DL (0.55-1.30); GLOMERULAR FILTRATION RATE 37.9 (>32); POTASSIUM SERUM 4.2 MMOL/L (3.5-5.1)
== END ==
LOC: SKLAB6 06:32
PROVIDERS: ATTEND Internal Medicine
DX: A08.11 Acute gastroenteropathy due to Norwalk agent (principal)

== ENCOUNTER → 2025-01-26 | Outpatient (REF) | payer MEDICARE, OTHER ==
[2025-01-26 08:18] LABS: CALCIUM LEVEL 8.9 MG/DL (8.3-10.6); CREATININE FOR GFR 1.13 MG/DL (0.55-1.30); GLOMERULAR FILTRATION RATE 48.5 (>32); POTASSIUM SERUM 4.1 MMOL/L (3.5-5.1)
== END ==
LOC: SKLAB6 07:00
PROVIDERS: ATTEND Internal Medicine
DX: A08.11 Acute gastroenteropathy due to Norwalk agent (principal)

== ENCOUNTER → 2025-03-05 | Outpatient (REF) | payer MEDICARE, OTHER ==
[2025-03-05 11:23] LABS: BASO # 0.1 10^3/uL (0.0-0.2); BASO % 0.7 % (0.0-1.0); EOS # 0.2 10^3/uL (0.0-0.5); EOS % 2.3 % (0.0-3.0); HEMATOCRIT 45.2 % (36.0-47.0); HEMOGLOBIN 14.7 g/dl (12.0-15.5); LYMPH # 2.2 10^3/uL (1.5-5.0); LYMPH % 22.8 % (24.0-44.0); MEAN CORPUSCULAR HEMOGLOBIN 31.4 pg (27.0-33.0); MEAN CORPUSCULAR HGB CONC 32.5 g/dl (32.0-36.5); MEAN CORPUSCULAR VOLUME 96.6 fl (80.0-96.0); MONO # 0.6 10^3/uL (0.0-0.8); MONO % 6.5 % (2.0-8.0); NEUTROPHILS # 6.5 10^3/uL (1.5-8.5); NEUTROPHILS % 67.4 % (36.0-66.0); PLATELET COUNT, AUTOMATED 202 10^3/uL (150-450); RED BLOOD COUNT 4.68 10^6/uL (4.00-5.40); WHITE BLOOD COUNT 9.7 10^3/uL (4.0-10.0)
[2025-03-05 11:55] LABS: THYROID STIMULATING HORMONE 26.166 uIU/ML (0.55-4.78)
[2025-03-05 11:56] LABS: ALBUMIN 3.5 G/DL (3.2-5.2); ALKALINE PHOSPHATASE 63 U/L (35-104); ALT/SGPT 21 U/L (7.0-40); AST/SGOT 13 U/L (<34); BILIRUBIN,TOTAL 0.8 MG/DL (0.3-1.2); BLOOD UREA NITROGEN 37 MG/DL (9-23); CALCIUM LEVEL 9.3 MG/DL (8.3-10.6); CARBON DIOXIDE LEVEL 31 MMOL/L (20-31); CHLORIDE LEVEL 107 MMOL/L (98-107); CREATININE FOR GFR 1.37 MG/DL (0.55-1.30); DIGOXIN LEVEL < 0.1 NG/ML (0.8-2.0); GLOMERULAR FILTRATION RATE 37.4 (>32); GLUCOSE, FASTING 80 MG/DL (74-106); POTASSIUM SERUM 4.9 MMOL/L (3.5-5.1); SODIUM LEVEL 144 MMOL/L (136-145)
== END ==
LOC: SKLAB6 07:18
PROVIDERS: ATTEND Internal Medicine
DX: E03.9 Hypothyroidism, unspecified (principal); I48.91 Unspecified atrial fibrillation; F03.90 Unspecified dementia, unspecified severity, without behavioral disturbance, psychotic disturbance, mood disturbance, and anxiety

== ENCOUNTER → 2025-05-29 | Outpatient (REF) | payer MEDICARE, OTHER ==
[2025-05-29 08:25] LABS: BASO # 0.1 10^3/uL (0.0-0.2); BASO % 0.9 % (0.0-1.0); EOS # 0.3 10^3/uL (0.0-0.5); EOS % 3.9 % (0.0-3.0); LYMPH # 2.1 10^3/uL (1.5-5.0); LYMPH % 24.5 % (24.0-44.0); MONO # 0.7 10^3/uL (0.0-0.8); MONO % 8.0 % (2.0-8.0); NEUTROPHILS # 5.4 10^3/uL (1.5-8.5); NEUTROPHILS % 62.4 % (36.0-66.0); PLATELET COUNT, AUTOMATED 159 10^3/uL (150-450)
[2025-05-29 08:59] LABS: FREE T4 1.5 NG/DL (0.89-1.76)
[2025-05-29 09:06] LABS: CALCIUM LEVEL 9.0 MG/DL (8.3-10.6); CARBON DIOXIDE LEVEL 28.0 MMOL/L (20-31); CHLORIDE LEVEL 108.0 MMOL/L (98-107); CREATININE FOR GFR 1.31 MG/DL (0.55-1.30); GLOMERULAR FILTRATION RATE 39.4 (>32); POTASSIUM SERUM 5.2 MMOL/L (3.5-5.1); SODIUM LEVEL 145.0 MMOL/L (136-145)
[2025-05-29 15:23] LABS: APPEARANCE, URINE CLOUDY (CLEAR); BACTERIA, URINE AUTO 2+ (NEGATIVE); BILIRUBIN, URINE AUTO NEGATIVE (NEGATIVE); BLOOD, URINE BLOOD 1+ (NEGATIVE); GLUCOSE, URINE (UA) AUTO NEGATIVE (NEGATIVE); KETONE, URINE AUTO NEGATIVE (NEGATIVE); LEUKOCYTE ESTERASE, URINE AUTO 3+ (NEGATIVE); MUCUS, URINE SMALL (NEGATIVE); NITRITE, URINE AUTO NEGATIVE (NEGATIVE); PROTEIN, URINE AUTO 1+ mg/dL (NEGATIVE); RBC, URINE AUTO 17 /HPF (0-3); SPECIFIC GRAVITY URINE AUTO 1.017 (1.002-1.035); SQUAMOUS EPITHELIAL CELL UR AU 4 /HPF (0-6); TRANSITIONAL EPITHELIAL AUTO 1 /HPF; UROBILINOGEN, URINE AUTO 0.2 mg/dL (0.0-2.0); WBC, URINE AUTO TNTC /HPF (0-3)
== END ==
LOC: SKLAB6 07:19
PROVIDERS: ATTEND Internal Medicine
DX: R30.0 Dysuria (principal); E03.9 Hypothyroidism, unspecified

== ENCOUNTER → 2025-06-14 | Outpatient (REF) | payer MEDICARE, OTHER ==
[2025-06-14 19:25] LABS: PLATELET COUNT, AUTOMATED 169 10^3/uL (150-450)
[2025-06-14 19:50] LABS: CALCIUM LEVEL 8.5 MG/DL (8.3-10.6); CARBON DIOXIDE LEVEL 28.0 MMOL/L (20-31); CHLORIDE LEVEL 109.0 MMOL/L (98-107); CREATININE FOR GFR 1.4 MG/DL (0.55-1.30); GLOMERULAR FILTRATION RATE 36.4 (>32); POTASSIUM SERUM 5.0 MMOL/L (3.5-5.1); SODIUM LEVEL 146.0 MMOL/L (136-145)
== END ==
LOC: SKLAB6 07:00
PROVIDERS: ATTEND Nurse Practitioner Family
DX: R05.9 Cough, unspecified (principal); I50.9 Heart failure, unspecified

== ENCOUNTER → 2025-06-14 | Outpatient (REF) | payer MEDICARE, OTHER | LOC: M RAD 19:30 | PROVIDERS: ATTEND Nurse Practitioner Family | DX: R05.9 Cough, unspecified (principal) ==

== ENCOUNTER → 2025-08-23 | Outpatient (REF) | payer MEDICARE, BC ==
[2025-08-23 13:24] LABS: ALT/SGPT 24.0 U/L (7.0-40); AST/SGOT 29.0 U/L (<34); CALCIUM LEVEL 9.0 MG/DL (8.3-10.6); CARBON DIOXIDE LEVEL 26.0 MMOL/L (20-31); CHLORIDE LEVEL 109.0 MMOL/L (98-107); CREATININE FOR GFR 1.02 MG/DL (0.55-1.30); GLOMERULAR FILTRATION RATE 53.3 (>32); POTASSIUM SERUM 4.8 MMOL/L (3.5-5.1); SODIUM LEVEL 146.0 MMOL/L (136-145)
[2025-08-23 13:25] LABS: PLATELET COUNT, AUTOMATED 120 10^3/uL (150-450)
== END ==
LOC: SKLAB6 11:44
PROVIDERS: ATTEND Nurse Practitioner Women's Health
DX: R41.82 Altered mental status, unspecified (principal)

== ENCOUNTER → 2025-09-15 | Outpatient (REF) | payer MEDICARE, BC ==
[2025-09-15 09:13] LABS: PLATELET COUNT, AUTOMATED 144 10^3/uL (150-450)
[2025-09-15 09:29] LABS: ALT/SGPT 19.0 U/L (7.0-40); AST/SGOT 19.0 U/L (<34); CALCIUM LEVEL 8.4 MG/DL (8.3-10.6); CARBON DIOXIDE LEVEL 26.0 MMOL/L (20-31); CHLORIDE LEVEL 108.0 MMOL/L (98-107); CREATININE FOR GFR 1.13 MG/DL (0.55-1.30); GLOMERULAR FILTRATION RATE 46.8 (>32); POTASSIUM SERUM 4.3 MMOL/L (3.5-5.1); SODIUM LEVEL 146.0 MMOL/L (136-145)
== END ==
LOC: SKLAB7 07:00
PROVIDERS: ATTEND Family Medicine
DX: E03.9 Hypothyroidism, unspecified (principal); F03.90 Unspecified dementia, unspecified severity, without behavioral disturbance, psychotic disturbance, mood disturbance, and anxiety; I48.91 Unspecified atrial fibrillation

== ENCOUNTER → 2025-09-21 | Outpatient (REF) | payer MEDICARE, BC ==
[2025-09-21 10:25] LABS: PLATELET COUNT, AUTOMATED 157 10^3/uL (150-450)
== END ==
LOC: SKLAB7 07:55
PROVIDERS: ATTEND Family Medicine
DX: D69.6 Thrombocytopenia, unspecified (principal)